=== PATIENT | male | born 1975 | race Caucasian/White ===

== ENCOUNTER 2019-04-19 04:16 | Emergency (ER) | payer OTHER ==
[~2019-04-19] VITALS: Ht 190.5 cm; Wt 94.3 kg
--- OUTSIDE RECORDS SUMMARY | ~2019-04-19 | XMS | Clinical Summary ---
Demographics + + + | Address | [address] | | | [place] [address] | + + + | Home Phone | | + + + | Preferred Language | Unknown | + + + | Marital Status | Single | + + + | Gnosticist Affiliation | Unknown | + + + | Race | Unknown | + + + | Ethnic Group | Unknown | + + + Author + + + | Author | [facility] | | | and [place] | + + + | Organization | [facility] | | | and [place] | + + + | Address | Unknown | + + + | Phone | Unavailable | + + + Support + + +---------+ + | Name | Relationship | Address | Phone | + + +---------+ + | Ana Ortiz | ECON | Unknown | | + + +---------+ + Care Team Providers + +------+ + | Care Hydraulic Pile Hammer Operator Name | Role | Phone | + +------+ + | Tom Barriga MD | PP | | + +------+ + Allergies No Known Allergies Medications + + + +---------+------+------+-------+ | Medication | Sig | Dispensed | Refills | Star | End | Statu | | | | | | t | Date | s | | | | | | Date | | | + + + +---------+------+------+-------+ | venlafaxine | Take 50 mg by mouth | | 0 | 08/3 | | Activ | | (EFFEXOR) 50 mg | 2 times daily. | | | 0/20 | | e | | tablet | | | | 10 | | | + + + +---------+------+------+-------+ | lisinopril | Take 20 mg by mouth | | 0 | 09 | | Activ | | (PRINIVIL, ZESTRIL) | Daily. | | | 3/20 | | e | | 20 mg tablet | | | | 12 | | | + + + +---------+------+------+-------+ Active Problems + + + | Problem | Noted Date | + + + | DIZZINESS | 07/16/2010 | + + + | OTALGIA | | + + + | MENIERE'S DISEASE | | + + + Social History + +-------+ +--------+------+ | Tobacco Use | Types | Packs/Day | Years | Date | | | | | Used | | + +-------+ +--------+------+ | Never Assessed | | | | | + +-------+ +--------+------+ + + + | Sex Assigned at | Date Recorded | | | | + + + | Not on file | | + + + + + + + | Job Start Date | Occupation | Industry | + + + + | Not on file | Not on file | Not on file | + + + + + + + + | Travel History | Travel Start | Travel End | + + + + + + | No recent travel history available. | + + Plan of Treatment + + + + + | Health Maintenance | Due Date | Last Done | Comments | + + + + + | Vaccine: | | | | | Dtap/Tdap/Td (1 - | 5 | | | | Tdap) | | | | + + + + + | Vaccine: Influenza | | | | | (Season Ended) | 9 | | | + + + + + Results Not on filefrom Last 3 Months Insurance + +--------+ +--------+ +---------+------+ | Payer | Benefi | Subscriber | Effect | Phone | Address | Type | | | t Plan | ID | efren | | | | | | / | | Dates | | | | | | Group | | | | | | + +--------+ +--------+ +---------+------+ | [facility] | PHP | [id number] | 11/17/19 | [phone] | | PPO | | PLAN | PEBB | | 13-Pre | 5 | | | | | STATEW | | sent | | | | | | [place]ISHA | | | | | | + +--------+ +--------+ +---------+------+ + +--------+ +--------+ + + | Guarantor Name | Accoun | Relation to | Date | Phone | Billing Address | | | t Type | Patient | of | | | | | | | | | | + +--------+ +--------+ + + | [place] | Person | Self [birth year] | [address] | | | [place] | | 1975 | [phone] | | | [place] | | | [address] (Home) | [place] [address] | + +--------+ +--------+ + + Advance Directives Patient has advance care planning documents on file. For more information, please contact:[facility] [place] [address]"
--- OUTSIDE RECORDS SUMMARY | ~2019-04-19 | XMS | Clinical Summary ---
Demographics + + + | Address | [address] | | | [place] [address] | + + + | Home Phone | | + + + | Preferred Language | Unknown | + + + | Marital Status | Single | + + + | Zoroastrianism Affiliation | Unknown | + + + | Race | Unknown | + + + | Ethnic Group | Unknown | + + + Author + + + | Author | [facility] | | | and [place] | + + + | Organization | [facility] | | [...] Team Providers + +------+ + | Care Utilization Management Rn Name | Role | Phone | + [...] | | + +--------+ +--------+ +---------+------+ | [facility] | PHP | [phone] | 11/17/19 | [phone] | | PPO [...] | | 0 (Home) | [place] [address] | + +--------+ +--------+ + + Advance Directives Patient has advance care planning documents on file. For more information, please contact:[facility] [place] [address]"
[2019-04-19] MEDS ORDERED: METOPROLOL SUCC25 MG PO (04:26)
== END 2019-04-19 09:21 | disposition home or self-care (01) ==
LOC: ED 04:16
PROC: 0HQEXZZ Repair Left Lower Arm Skin, External Approach (ICD-10-PCS; principal; 2019-04-19)
DX: S61.512A Laceration without foreign body of left wrist, initial encounter (principal); F10.129 Alcohol abuse with intoxication, unspecified; I10 Essential (primary) hypertension; Z79.899 Other long term (current) drug therapy; X78.1XXA Intentional self-harm by knife, initial encounter
CPT/HCPCS: 12002; 80053; 80176; 81001; 84443; 85025; 90715; 99284-25; G0480

== ENCOUNTER 2019-05-21 10:33 | Emergency (ER) | payer OTHER ==
[~2019-05-21] VITALS: Ht 190.5 cm; Wt 97.5 kg
[~2019-05-21 10:33] MED LIST: METOPROLOL SUCC25 MG PO
[2019-05-21] MEDS ORDERED: ZOLOFT50 MG PO (10:57)
[2019-05-21] MEDS ORDERED: IBU800 MG PO (11:25)
== END 2019-05-21 11:42 | disposition home or self-care (01) ==
LOC: ED 10:33
DX: S20.212A Contusion of left front wall of thorax, initial encounter (principal); I10 Essential (primary) hypertension; Z79.899 Other long term (current) drug therapy; X50.1XXA Overexertion from prolonged static or awkward postures, initial encounter; Y93.72 Activity, wrestling
CPT/HCPCS: 71046; 99284-25